=== PATIENT | male | born 1945 | race Caucasian/White ===

== ENCOUNTER 2017-10-31 02:05 | Emergency (ER) | payer MEDICARE, BC ==
[2017-10-31] MEDS ORDERED: Ketorolac 60 MG/2 ML SDV IM ONE (02:30)
--- NOTE | 2017-10-31 07:29 | EDM.PDOC ---
ED HPI GENERAL MEDICAL PROBLEM - General Chief Complaint: Back Pain or Injury Stated Complaint: Bilateral neck pain, shoulder blade pain Time Seen by Provider: 10/31/17 02:55 Source of Information: Reports: Patient History Limitations: Reports: No Limitations - History of Present Illness INITIAL COMMENTS - FREE TEXT/NARRATIVE: Pt. was picked up today by law enforcement for impaired driving. He was brought to ER for a legal blood draw. Shortly before law enforcement was leaving the ER , pt. began complaining of muscle soreness to his neck and upper back area. Pt. states that he has been active lately and also has a history of arthritis. He states that the discomfort is made worse with movement of the head, neck and arms and is potentiated with palpation of the muscles involved. Location: Reports: Neck, Back Quality: Reports: Ache Associated Symptoms: Denies: Chest Pain, Cough, Fever/Chills, Nausea/Vomiting, Shortness of Breath, Syncope Blateral neck/shoulder blade Pain Score (Numeric/FACES): 8 - Related Data Allergies Allergy/AdvReac Type Severity Reaction Status Date / Time No Known Allergies Allergy Verified 10/31/17 03:00 Home Meds: Home Meds Dutasteride [Avodart] 0.5 mg PO DAILY 10/23/13 [History] Surbex 1 tab PO DAILY 10/23/13 [History] Tamsulosin HCl [Flomax] 0.4 mg PO DAILY 10/23/13 [History] Past Medical History Genitourinary History: Reports: Prostate Disorder ED ROS GENERAL - Review of Systems Review Of Systems: See Below Constitutional: Reports: No Symptoms HEENT: Reports: No Symptoms Respiratory: Reports: No Symptoms Cardiovascular: Reports: No Symptoms Endocrine: Reports: No Symptoms GI/Abdominal: Reports: No Symptoms : Reports: No Symptoms Musculoskeletal: Reports: Neck Pain, Back Pain (discomfort on palpation/ movement of the lats and shoulder muscles.) Skin: Reports: No Symptoms Neurological: Reports: No Symptoms Psychiatric: Reports: No Symptoms Hematologic/Lymphatic: Reports: No Symptoms Immunologic: Reports: No Symptoms ED EXAM, GENERAL - Physical Exam Exam: See Below Exam Limited By: No Limitations General Appearance: Alert, WD/WN, No Apparent Distress Nose: Normal Inspection, Normal Mucosa, No Blood Throat/Mouth: Normal Inspection, Normal Lips, Normal Teeth, Normal Gums, Normal Oropharynx, Normal Voice, No Airway Compromise Head: Atraumatic, Normocephalic Neck: Normal Inspection, Supple, Full Range of Motion, Tender Lateral Respiratory/Chest: No Respiratory Distress, Lungs Clear, Normal Breath Sounds, No Accessory Muscle Use, Chest Non-Tender Cardiovascular: Normal Peripheral Pulses, Regular Rate, Rhythm, No Edema, No Gallop, No JVD, No Murmur, No Rub Back Exam: Normal Inspection, Decreased Range of Motion Extremities: Normal Inspection, Normal Range of Motion, Non-Tender, Normal Capillary Refill, No Pedal Edema EKG INTERPRETATION Rhythm: NSR Belen: Normal P-Wave: Present QRS: Normal ST-T: Normal QT: Normal Course - Vital Signs Last Recorded V/S: Last Vital Signs Temp 36.1 C 10/31/17 02:05 Pulse 100 10/31/17 02:05 Resp 16 10/31/17 02:05 BP 172/92 H 10/31/17 02:05 Pulse Ox 94 L 10/31/17 02:05 - Orders/Labs/Meds Orders: Active Orders 24 hr Category Date Time Status EKG 12 Lead [EKG Documentation Completion] [RC] STAT Care 10/31/17 02:18 Active Meds: Medications Discontinued Medications Generic Name Dose Route Start Last Admin Trade Name Freq PRN Reason Stop Dose Admin Ketorolac Tromethamine 60 mg 10/31/17 02:30 10/31/17 02:36 Toradol IM 10/31/17 02:31 60 mg ONETIME ONE Administration Departure - Departure Time of Disposition: 02:40 Disposition: DC/Tfer to Other 70 Clinical Impression: Muscle spasm - Discharge Information Instructions: Muscle Cramps and Spasms, [id number] Referrals: PCP,Harmanobradha [Primary Care Provider] - Forms: ED Department Discharge Additional Instructions: Ibuprofen as needed for pain. Follow-up in clinic in 7-10 days. - My Orders Last 24 Hours: My Active Orders 10/31/17 02:18 EKG 12 Lead [EKG Documentation Completion] [RC] STAT - Assessment/Plan Last 24 Hours: My Active Orders 10/31/17 02:18 EKG 12 Lead [EKG Documentation Completion] [RC] STAT
== END 2017-10-31 02:55 | disposition other institution (70) ==
LOC: VM.ED 02:05
DX: M62.838 Other muscle spasm (principal); Z79.899 Other long term (current) drug therapy
CPT/HCPCS: 93005; 96372; 99284; J1885

== ENCOUNTER 2017-10-31 08:34 | Emergency (ER) | payer MEDICARE, BC ==
[2017-10-31] MEDS ORDERED: Sodium Chloride 0.9% 1,000 ML IV ONE (08:45)
[2017-10-31] MEDS ORDERED: Sodium Chloride 0.9% 10 ML Syringe FLUSH PRN (08:46)
--- NOTE | 2017-10-31 09:00 | EDM.PDOC ---
ED HPI GENERAL MEDICAL PROBLEM - General Chief Complaint: Neuro Symptoms/Deficits Stated Complaint: ER VISIT Time Seen by Provider: 10/31/17 08:42 Source of Information: Reports: Patient, EMS History Limitations: Reports: No Limitations - History of Present Illness INITIAL COMMENTS - FREE TEXT/NARRATIVE: Patient was arrested last night for DUI and upon hearing he was being arrested complained of not being able to walk. He was brought in for examination and within 30 minutes was walking. When he was informed he was going to residential, he started acting like he could not walk again. Was brought into the residential. This morning was found on the floor with complaints of neck and head pain, and inability to walk. States he is unable to feel anything below the knee. Onset Date: 10/30/17 - Related Data Allergies Allergy/AdvReac Type Severity Reaction Status Date / Time No Known Allergies Allergy Verified 10/31/17 09:01 Home Meds: Home Meds Dutasteride [Avodart] 0.5 mg PO DAILY 10/23/13 [History] Surbex 1 tab PO DAILY 10/23/13 [History] Tamsulosin HCl [Flomax] 0.4 mg PO DAILY 10/23/13 [History] Past Medical History Genitourinary History: Reports: Prostate Disorder ED ROS GENERAL - Review of Systems Review Of Systems: See Below Constitutional: Reports: No Symptoms HEENT: Reports: No Symptoms Respiratory: Reports: No Symptoms Cardiovascular: Reports: No Symptoms Endocrine: Reports: No Symptoms GI/Abdominal: Reports: No Symptoms : Reports: No Symptoms Musculoskeletal: Reports: Neck Pain, Muscle Pain, Muscle Stiffness Skin: Reports: Wound Neurological: Reports: Other (unable to walk) Psychiatric: Reports: No Symptoms Hematologic/Lymphatic: Reports: No Symptoms Immunologic: Reports: No Symptoms ED EXAM, NEURO - Physical Exam Exam: See Below Exam Limited By: No Limitations General Appearance: Alert, WD/WN, No Apparent Distress Eye Exam: Bilateral Eye: EOMI, Normal Inspection, PERRL Ears: Normal TMs Throat/Mouth: Normal Inspection, Normal Lips, Normal Teeth, Normal Gums, Normal Oropharynx, Normal Voice, No Airway Compromise Head Exam: Atraumatic, Normocephalic Neck: Normal Inspection, Other (c-spine precautions) Respiratory/Chest: No Respiratory Distress, Lungs Clear, Normal Breath Sounds, No Accessory Muscle Use, Chest Non-Tender Cardiovascular: Normal Peripheral Pulses, Regular Rate, Rhythm, No Edema, No Gallop, No JVD, No Murmur, No Rub GI/Abdominal: Normal Bowel Sounds, Soft, Non-Tender, No Organomegaly, No Distention, No Abnormal Bruit, No Mass Neurological: Alert, Normal Mood/Affect, Oriented x 3, Other (patient is unable to move legs, no reflexes bilateral no feeling below knees bilateral). No: Normal Dorsiflexion, Normal Plantar Flexion, Normal Gait, Normal Reflexes DTR: 0: Patella (R), Patella (L), Achilles (R), Achilles (L) Back Exam: Normal Inspection, Full Range of Motion, NT Extremities: Normal Inspection, Normal Capillary Refill Psychiatric: Normal Affect Skin Exam: Wound/Incision (skin tear to right elbow) Course - Vital Signs Last Recorded V/S: Last Vital Signs Temp 35.5 C 10/31/17 08:34 Pulse 77 10/31/17 08:34 Resp 18 10/31/17 08:34 BP 160/102 H 10/31/17 08:34 Pulse Ox 97 10/31/17 08:34 - Orders/Labs/Meds Orders: Active Orders 24 hr Category Date Time Status Cervical Spine wo Cont [CT] Stat Exams 10/31/17 08:45 Ordered Head wo Cont [CT] Stat Exams 10/31/17 08:45 Ordered Lumbar Spine wo Cont [CT] Stat Exams 10/31/17 08:45 Ordered Thoracic Spine wo Cont [CT] Stat Exams 10/31/17 08:45 Ordered URINALYSIS W/MICROSCOPIC [UA W/MICROSCOPIC] [URIN] Stat Lab 10/31/17 11:20 Ordered URINE DRUG SCREEN,POC [POC] Routine Lab 10/31/17 08:45 Ordered Sodium Chloride 0.9% @ 125 MLS/HR (1000ml) Med 10/31/17 11:15 Ordered Sodium Chloride 0.9% [Normal Saline] 1,000 ml IV ASDIRECTED Sodium Chloride 0.9% [Saline Flush] Med 10/31/17 08:46 Ordered 10 ml FLUSH ASDIRECTED PRN Saline Lock Insert [OM.PC] Routine Oth 10/31/17 08:46 Ordered Medication Orders Sodium Chloride (Normal Saline) 1,000 mls @ 125 mls/hr IV ASDIRECTED LAW Sodium Chloride (Saline Flush) 10 ml FLUSH ASDIRECTED PRN PRN Reason: Keep Vein Open Labs: Laboratory Tests 10/31/17 10/31/17 10/31/17 Range/Units 08:57 08:57 08:57 WBC 12.0 H (4.0-10.0) x10^3/uL RBC 4.31 L (4.5-6.0) x10^6/uL Hgb 13.9 L (14.0-18.0) g/dL Hct 41.2 (40.0-52.0) % MCV 95.6 H (78.0-93.0) fL MCH 32.3 H (26.0-32.0) pg MCHC 33.7 (32.0-36.0) g/dL RDW Coeff of Tj 13.0 (10.0-15.0) % Plt Count 179 (130-400) x10^3/uL Neut % (Auto) 90.7 H (50.0-80.0) % Lymph % (Auto) 2.3 L (25.0-50.0) % [place] % (Auto) 6.9 (2.0-11.0) % Eos % (Auto) 0.0 (0.0-4.0) % Baso % (Auto) 0.1 L (0.2-1.2) % Add Manual Diff Sodium 138 (136-145) mmol/L Potassium 4.4 (3.5-5.1) mmol/L Chloride 105 (98-107) mmol/L Carbon Dioxide 25 (21-32) mmol/L Anion Gap 12.4 (10-20) mmol/L BUN 17 (7-18) mg/dL Creatinine 1.2 (0.70-1.30) mg/dL Est Cr Clr Drug Dosing 57.12 mL/min Estimated GFR (MDRD) 60 Glucose 137 H (74-106) mg/dL Lactic Acid 1.0 (0.4-2.0) mmol/L Calcium 9.2 (8.5-10.1) mg/dL Corrected Calcium 9.36 (8.5-10.1) mg/dL Phosphorus 3.1 (2.6-4.7) mg/dL Magnesium 2.0 (1.8-2.4) mg/dL Total Bilirubin 0.7 (0.2-1.0) mg/dL AST 51 H (15-37) U/L ALT 37 (16-63) U/L Alkaline Phosphatase 76 (46-116) U/L Creatine Kinase 1455 H* (39-308) U/L Total Protein 7.2 (6.4-8.2) g/dL Albumin 3.8 (3.4-5.0) g/dL Globulin 3.4 Albumin/Globulin Ratio 1.12 Ethyl Alcohol < 3 (0-3) mg/dL Meds: Medications Generic Name Dose Route Start Last Admin Trade Name Freq PRN Reason Stop Dose Admin Sodium Chloride 1,000 mls @ 125 mls/hr 10/31/17 11:15 Normal Saline IV ASDIRECTED LAW Sodium Chloride 10 ml 10/31/17 08:46 Saline Flush FLUSH ASDIRECTED PRN Keep Vein Open Discontinued Medications Generic Name Dose Route Start Last Admin Trade Name Freq PRN Reason Stop Dose Admin Ceftriaxone Sodium 1 gm 10/31/17 11:04 10/31/17 11:10 Rocephin IVPUSH 10/31/17 11:05 1 gm STAT ONE Administration Sodium Chloride 1,000 mls @ 999 mls/hr 10/31/17 08:45 10/31/17 11:07 Normal Saline IV 10/31/17 09:45 999 mls/hr ONETIME ONE Administration - Re-Assessments/Exams Free Text/Narrative Re-Assessment/Exam: 10/31/17 12:57 ct scans reviewed showing a C6-C7 lesion. thoracic and lumbar spine show ankylosing spondylitis changes Departure - Departure Time of Disposition: 13:08 Disposition: DC/Tfer to Acute Hospital 02 Condition: Good Clinical Impression: Cervical spine fracture - Discharge Information *PRESCRIPTION DRUG MONITORING PROGRAM REVIEWED*: Not Applicable *COPY OF PRESCRIPTION DRUG MONITORING REPORT IN PATIENT HOLLY: Not Applicable Forms: ED Department Discharge, Interfacility Transfer EMTALA ED Communication - Discussed Case With (1) Discussed Case With (1): Admitting Provider (Report given to Dr. Malcolm and director of communications neuro-surgeon. Care was accepted. Transfer to the ER. Return call from Dr. Emerson, neurosurgery from [place] with indications that he may have an unstable cervical fracture. Advised to remain in spinal/c spine precautions. Cervical collar has been in place since arrival, patient placed on vacusplint) - Problem List & Annotations (1) Cervical spine fracture SNOMED Code(s): 514900771 Code(s): S12.9XXA - FRACTURE OF NECK, UNSPECIFIED, INITIAL ENCOUNTER Status : Acute Priority: Medium Current Visit: Yes Qualifiers: Encounter type: initial encounter Cervical vertebra fracture level: C7 Fracture type: closed Fracture morphology: other fracture - My Orders Last 24 Hours: My Active Orders 10/31/17 08:45 Cervical Spine wo Cont [CT] Stat Head wo Cont [CT] Stat Lumbar Spine wo Cont [CT] Stat Thoracic Spine wo Cont [CT] Stat URINE DRUG SCREEN,POC [POC] Routine 10/31/17 08:46 Sodium Chloride 0.9% [Saline Flush] 10 ml FLUSH ASDIRECTED PRN Saline Lock Insert [OM.PC] Routine 10/31/17 11:15 Sodium Chloride 0.9% @ 125 MLS/HR (1000ml) Sodium Chloride 0.9% [Normal Saline] 1,000 ml IV ASDIRECTED 10/31/17 11:20 URINALYSIS W/MICROSCOPIC [UA W/MICROSCOPIC] [URIN] Stat - Assessment/Plan Last 24 Hours: My Active Orders 10/31/17 08:45 Cervical Spine wo Cont [CT] Stat Head wo Cont [CT] Stat Lumbar Spine wo Cont [CT] Stat Thoracic Spine wo Cont [CT] Stat URINE DRUG SCREEN,POC [POC] Routine 10/31/17 08:46 Sodium Chloride 0.9% [Saline Flush] 10 ml FLUSH ASDIRECTED PRN Saline Lock Insert [OM.PC] Routine 10/31/17 11:15 Sodium Chloride 0.9% @ 125 MLS/HR (1000ml) Sodium Chloride 0.9% [Normal Saline] 1,000 ml IV ASDIRECTED 10/31/17 11:20 URINALYSIS W/MICROSCOPIC [UA W/MICROSCOPIC] [URIN] Stat
[2017-10-31 09:42] LABS: CHLORIDE,CL 105 mmol/L (98-107); SODIUM,NA 138 mmol/L (136-145)
[2017-10-31 09:45] LABS: ANION GAP 12.4 mmol/L (10-20)
[2017-10-31] MEDS ORDERED: cefTRIAXone 1 GM Vial IVPUSH ONE (11:04)
[2017-10-31] MEDS ORDERED: Sodium Chloride 0.9% 1,000 ML IV SCH (11:15)
== END 2017-10-31 13:11 | disposition short-term general hospital (02) ==
LOC: VM.ED 08:34
DX: S12.500A Unspecified displaced fracture of sixth cervical vertebra, initial encounter for closed fracture (principal); S12.600A Unspecified displaced fracture of seventh cervical vertebra, initial encounter for closed fracture; Z79.899 Other long term (current) drug therapy; X58.XXXA Exposure to other specified factors, initial encounter
CPT/HCPCS: 36415; 70450; 72125; 72128; 72131; 80053; 82550; 83605; 83735; 84100; 85025; 96361; 96374; 99285; G0480; J0696; J7030